=== PATIENT | male | born 1985 | race Caucasian/White ===

== ENCOUNTER → 2024-05-16 09:00 | Outpatient (REF) | payer OTHER, SELFPAY | LOC: DHSLP 09:00 | PROVIDERS: ATTENDING PHYSICIAN Internal Medicine Cardiovascular Disease | DX: G47.19 Other hypersomnia (principal); R06.83 Snoring | CPT/HCPCS: 95800 ==

== ENCOUNTER → 2024-05-17 07:18 | Outpatient (REF) | payer OTHER, SELFPAY | LOC: HWRCS 07:18 | PROVIDERS: ATTENDING PHYSICIAN Internal Medicine Cardiovascular Disease; FAMILY PHYSICIAN Family Medicine | DX: I10 Essential (primary) hypertension (principal); I34.1 Nonrheumatic mitral (valve) prolapse | CPT/HCPCS: 93306 ==

== ENCOUNTER 2024-07-21 11:23 | Emergency (ER) | payer OTHER, SELFPAY ==
[2024-07-21 11:32] VITALS: BP 153/96
[2024-07-21 12:06] LABS: Urine Albumin Negative (Neg - Trace); Urine Bilirubin Negative (Negative); Urine Character Clear (Clear); Urine Color Yellow; Urine Glucose Negative (Negative); Urine Ketone Negative (Negative); Urine Leukocyte Negative (Negative); Urine Nitrite Negative (Negative); Urine Occult Blood Negative (Negative); Urine Urobilinogen Negative (Neg - 1+); Urine pH 6.5 (5.0-9.0)
--- NOTE | 2024-07-21 12:39 | ED.GENMED ---
History of Present Illness
General
Chief Complaint: Male Genito-Urinary Symptoms
Source: patient
Exam Limitations: none
Time Seen by Provider: 07/21/24 11:56
Nursing documentation reviewed up to this point in time: agreed with
History of Present Illness
History of Present Illness:
38-year-old male insulin-dependent diabetic also on Ozempic presents with dysuria urgency, burning the tip of his penis, no fever no nausea or vomiting, seen in urgent care had a urine dip culture was sent no antibiotics given he is here think he
needs antibiotics, denies any hematuria, denies any discharge, had a prostate exam at urgent care, has no flank pain states his pain is different than when he had kidney stones before
Past History
Past History
ED Past Medical History: IDDM
ED Past Surgical History: Urological
Social History
Tobacco: Non-smoker
Alcohol: None
Drug: None
Living: with family
Employment: Employed
Family History
Family History: Other
Review of Systems
Review of Systems
All Other Systems: Not applicable
Constitutional: Denies fever or fatigue
EENT: Reports no symptoms
Respiratory: Reports no symptoms
Cardiac: Reports no symptoms
ABD/GI: Denies abdominal pain or nausea
: Reports dysuria, frequency and urgency; Denies flank pain, dark urine or discharge
Musculoskeletal: Reports no symptoms
Skin: Reports no symptoms
Endocrine: Reports no symptoms
Phy Exam
Physical Exam
Physical Exam:
Physical Exam
General: no apparent distress, not acutely ill
Neck: No jaundice
Heart: s1/s2 regular rate and rhythm, no murmur. equal radial pulses.
Lungs: no acute respiratory distress. clear bilaterally
Abdomen: Nontender
, minimal erythema at the glans at the meatus no obvious discharge no flexion
Neuro: alert and oriented. no focal neurological deficits
Skin: no rash
Psychiatric: well kept. interactive and cooperative
Extremities: no edema.
Course
Orders/Labs/Results
Orders:
Orders
07/21/24 11:56
Add On- LAB Urgent
Tests Added?: Urine GC chlamydia
07/21/24 11:57
UA Reflex to Culture [Urinalysis Reflex To Culture] Urgent
Date Specimen was Collected: 07/21/24
Time Specimen was Collected: 11:38
Chlamydia/GC by PCR Urgent
[facility] Source: U
Specimen Description:
Source:: URINE
Date Specimen was Collected: 07/21/24
Time Specimen was Collected: 11:38
Comment: ADD ON
07/21/24 12:28
LevoFLOXacin [Levaquin] 500 mg PO NOW STA
Phenazopyridine HCl [Pyridium] 200 mg PO NOW STA
Vital Signs
Initial and Last Documented VS:
Initial Vital Signs
Temp Pulse Resp BP Pulse Ox
97.8 F 80 16 153/96 100
07/21/24 11:32 07/21/24 11:32 07/21/24 11:32 07/21/24 11:32 07/21/24 11:32
Last Documented Vital Signs
Temp Pulse Resp BP Pulse Ox
97.8 F 80 16 153/96 100
07/21/24 11:32 07/21/24 11:32 07/21/24 11:32 07/21/24 11:32 07/21/24 11:32
MDM/Problems Addressed
Differential Diagnosis Includes:
UTI balanitis renal stone ureteral stone STD
MDM/Problems Addressed:
Urinary frequency
Chronic conditions affecting care: DM
Acute Exacerbation and/or Progression of Chronic Illness: DM
*Pulse Oximetry
Patient hypoxic: no
*Critical Care Note
Total Time (30-74mins, 75-104mins- exclusive of procedures): Not Applicable
Update Note
Update Note:
Update patient is symptomatic, he is diabetic urine noted cultures pending culture from yesterday from urgent care also pending will treat empirically with a few days of quinolone, also Pyridium, Lotrimin for some possible fungal infection
ED Attending Note
-
Portions of this chart may have been created with voice recognition software.� Occasional wrong word or��sound alike� substitutions may have occurred due to the inherent limitations of voice recognition software.
Discharge Plan
Departure
Patient Disposition: Home (Routine Discharge)
Date of Disposition: 07/21/24
Time of Disposition: 12:49
Patient with high blood pressure during this ER visit?: No
Condition: Good
Discharge Problem:
Dysuria
Instructions: Urinary Tract Infection - Men
Prescriptions:
New
levofloxacin 500 mg tablet
500 mg PO DAILY 5 Days Qty: 5 0RF
clotrimazole [Lotrimin AF (clotrimazole)] 1 % cream
1 applic topical BID Qty: 15 0RF
Rx Instructions:
Small amount to the tip your penis twice a day for the next 5 days
No Action
ondansetron 4 mg tablet,disintegrating
4 mg PO Q8H PRN (Reason: nausea and vomiting) Qty: 7 0RF
Referrals:
Patrick Chaves MD [Family Provider] - Next open appointment
Activity Restrictions/Additional Instructions:
Antibiotics as prescribed
Antifungal cream to the tip of your penis twice a day for the next 5 days
Pyridium 3 times a day for the next 2 days this can make your urine and tears orange
Interventions
Interventions:
*Risk Screen - Suicide Last Done: 07/21/24 11:32
*General Assessment Last Done: 07/21/24 11:32
*Neglect/Abuse Screening Last Done: 07/21/24 11:32
*ED COVID-19 Vaccine History Last Done: 07/21/24 11:32
ED-Male Genitourinary Assessment Last Done: 07/21/24 11:54
Discharge Date and Time
Print Language: CHINESE
[2024-07-21] MEDS: Pyridium 200 MG PO (13:02)
[2024-07-21] MEDS: LEVAQUIN 500 MG PO (13:02)
[2024-07-21 13:06] VITALS: BP 117/82
== END 2024-07-21 13:10 | disposition home or self-care (01) ==
LOC: EMR 11:23
PROVIDERS: EMERGENCY PHYSICIAN Emergency Medicine; FAMILY PHYSICIAN Internal Medicine
DX: R30.0 Dysuria (principal); E11.9 Type 2 diabetes mellitus without complications
CPT/HCPCS: 99282; 81003; 87491; 87591

== ENCOUNTER → 2024-08-11 09:45 | Outpatient (REF) | payer OTHER, SELFPAY | LOC: HWRAD 09:45 | PROVIDERS: ATTENDING PHYSICIAN Physician Assistant Medical; FAMILY PHYSICIAN Internal Medicine | DX: N48.89 Other specified disorders of penis (principal) | CPT/HCPCS: 76770 ==

== ENCOUNTER 2025-05-01 06:28 | Day surgery (SDC) | payer OTHER, SELFPAY ==
[2025-05-01 07:44] LABS: Glucose - Point of Care 157 mg/dl (70-99)
== END 2025-05-01 09:21 | disposition home or self-care (01) ==
LOC: GI 06:28
PROVIDERS: ATTENDING PHYSICIAN Surgery
DX: K62.5 Hemorrhage of anus and rectum (principal); K57.30 Diverticulosis of large intestine without perforation or abscess without bleeding; K64.8 Other hemorrhoids; K63.9 Disease of intestine, unspecified
CPT/HCPCS: 45380; 82962; 88305